=== PATIENT | female | born 2000 | race Hispanic/Latino ===

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

== ENCOUNTER 2025-07-30 23:12 | Emergency (ER) | payer MEDICAID, OTHER ==
[~2025-07-30] VITALS: Ht 162.6 cm; Wt 72.1 kg
[2025-07-30 23:44] LABS: APPEARANCE,URINE TURBID (CLEAR); GLUCOSE, URINE (UA) NEGATIVE (NEGATIVE); LEUKOCYTE ESTERASE ,URINE 250 Leu/uL (NEGATIVE); NITRATE,URINE NEGATIVE (NEGATIVE); OCCULT BLOOD,URINE LARGE (NEGATIVE)
[2025-07-30 23:45] LABS: HCG,QUALITATIVE URINE POSITIVE (NEGATIVE)
[2025-07-30 23:48] LABS: SQUAMOUS EPITHELIAL CELL,UR RARE /HPF (0-2)
[2025-07-31 00:43] LABS: IMMATURE GRANULOCYTE ABSOLUTE 0.03 K/uL (0-1); NUCLEATED RED BLOOD CELLS 0.0 % (0.0-0.19); PLATELET COUNT (AUTO) 300 K/uL (130-400); RED BLOOD CELL COUNT(AUTO) 4.19 MIL/uL (4.00-5.50); RED CELL DISTRIBUTION WIDTH 12.4 % (11.0-15.5); WHITE BLOOD COUNT (AUTO) 10.9 K/uL (4.8-10.8)
--- NOTE | 2025-07-31 00:50 | NUR ---
AT ULTRASOUND AT THIS TIME.
[2025-07-31 00:51] LABS: CREATININE 0.8 mg/dL (0.5-1.0); GLOMERULAR FILTR. RATE CALC 105.0 mL/min (>90); GLUCOSE,RANDOM 88.0 mg/dL (70-105); SODIUM SERUM 139.0 mmol/L (136-145); UREA NITROGEN, BLOOD 12.0 mg/dL (7-18)
[2025-07-31 01:18] LABS: HCG,QUANTITATIVE 4111.0 mIU/mL (0-5)
[2025-07-31] MEDS ORDERED: CEPH500B PO (01:38)
--- NOTE | 2025-07-31 01:39 | ERN ---
General Chief Complaint: Vaginal Bleeding Stated Complaint: C/O VAGINAL BLEEDING; 7 WKS Time Seen by MD: 23:22 History of Present Illness Initial Comments 24-year-old female came in for vaginal bleeding. Allergies: Coded Allergies: No Known Allergies (Unverified Allergy, Unknown, 07/30/25) Past Medical History Past Medical History: No Pertinent History Past Surgical History: None Female( History) LMP: Jun 09, 2025 : 1 Para: 0 Aborts: 0 ROS Dictation Vaginal bleed Physical Exam General Appearance: (+) no apparent distress, (+) apparent distress Respiratory: (+) chest non-tender, (+) lungs clear Heart: (+) regular, (+) no gallop Gastrointestinal: (+) soft, (+) no organomegaly, (+) bowel sound present Results Laboratory and Microbiology Lab and Micro Result Laboratory Tests Test 07/30/25 23:37 07/30/25 23:55 Urine Color YELLOW (YELLOW) Urine Appearance TURBID (CLEAR) Urine pH 7.0 (5.0-8.0) Urine Specific [place] 1.020 (1.001-1.031) Urine Protein NEGATIVE mg/dL (NEGATIVE) Urine Glucose (UA) NEGATIVE mg/dL (NEGATIVE) Urine Ketones 20 mg/dL (NEGATIVE) H Urine Occult Blood LARGE (NEGATIVE) H Urine Nitrate NEGATIVE (NEGATIVE) Urine Bilirubin NEGATIVE mg/dL (NEGATIVE) Urine Urobilinogen 0.2 mg/dL (0.2-1.0) Urine Leukocyte Esterase 250 Johnnie/uL (NEGATIVE) H Urine RBC 11-25 /HPF (0-1) H Urine WBC 26-50 /HPF (0-1) H Urine Squamous Epithelial Cells RARE /HPF (0-2) Urine Amorphous Crystals (Auto) RARE /LPF (None Seen) Urine Bacteria RARE /HPF (None Seen) Urine HCG, Qualitative POSITIVE (NEGATIVE) H White Blood Count 10.9 K/uL (4.8-10.8) H Red Blood Count 4.19 MIL/uL (4.00-5.50) Hemoglobin 13.3 g/dL (12.0-16.0) Hematocrit 38.9 % (36-48) Mean Corpuscular Volume 92.8 fL (79-99) Mean Corpuscular Hemoglobin 31.7 pg (27.0-33.0) Mean Corpuscular Hemoglobin Concent 34.2 g/dL (32.0-36.0) Red Cell Distribution Width 12.4 % (11.0-15.5) Platelet Count 300 K/uL (130-400) Mean Platelet Volume 9.3 fL (7.5-10.5) Immature Granulocyte % (Auto) 0.3 % (0-1) Neutrophils (%) (Auto) 60.9 % (40.0-77.0) Lymphocytes (%) (Auto) 28.1 % (21.0-51.0) Monocytes (%) (Auto) 8.2 % (3.0-13.0) Eosinophils (%) (Auto) 2.0 % (0.0-8.0) Basophils (%) (Auto) 0.5 % (0.0-5.0) Neutrophils # (Auto) 6.6 K/uL (1.8-7.7) Lymphocytes # (Auto) 3.1 K/uL (1.0-4.8) Monocytes # (Auto) 0.9 K/uL (0.1-1.0) Eosinophils # (Auto) 0.22 K/uL (0.00-0.70) Basophils # (Auto) 0.06 K/uL (0.00-0.20) Absolute Immature Granulocyte (auto 0.03 K/uL (0-1) Nucleated Red Blood Cells 0.0 % (0.0-0.19) Sodium Level 139 mmol/L (136-145) Potassium Level 3.6 mmol/L (3.5-5.1) Chloride Level 105 mmol/L (101-111) Carbon Dioxide Level 26 mmol/L (21-32) Blood Urea Nitrogen 12 mg/dL (7-18) Creatinine 0.8 mg/dL (0.5-1.0) Glomerular Filtration Rate Calc 105 mL/min (>90) Random Glucose 88 mg/dL (70-105) Total Calcium 9.6 mg/dL (8.5-10.1) Human Chorionic Gonadotropin, Quant 4111 mIU/mL (0-5) H MDM MDM: Differential diagnosis: Rationale: Tests considered and ordered secondary to shared decision making include: Previous outside records reviewed: Old ER visits. Risk of complication and/or morbidity or mortality of patient management: None Medications-Per medication reconciliation Need for hospitalization: Patient does not meet criteria for hospitalization. Need for emergency major/minor surgery: No There are no social concerns with this patient. Prescription drug management Prescriptions will include symptomatic care Patient's prior external medical records from other ER visits were reviewed by me as indicated. Prior testing and results from previous visits were reviewed. Prior tests were taken into account with medical decision making and resource utilization, independent historian/historians were used to obtain complete medical history. I independently interpreted the test that were performed, results were reviewed by me and considered findings on radiology if ordered. Medical management and examination interpretation discussions were had by me with other qualified healthcare professionals as indicated for the patient's care. ED Course Orders Procedure Category Date Status Time Cbc With Differential LAB 07/30/25 Complete 23:23 Basic Metabolic Panel LAB 07/30/25 Complete 23:23 Hcg,Quantitative LAB 07/30/25 Complete 23:23 ,Urine Test LAB 07/30/25 Complete 23:23 Urinalysis LAB 07/30/25 Complete W/Microscopic 23:23 Us Ob <14 Weeks US 07/30/25 Taken 23:23 Culture Urine STEPHANIE 07/30/25 In Process 23:46 Vital Signs Date Time Temp Pulse Resp B/P (MAP) Pulse Ox O2 Delivery O2 Flow Rate FiO2 07/30/25 23:16 98.2 77 20 124/79 100 Room Air DX & DISP Disposition: Discharge Departure Impression: Primary Impression: Threatened Condition: Stable Scripts Cephalexin Monohydrate (Keflex) 500 Mg Cap 500 MG PO BID for 7 Days, #14 CAP Prov: KERRI CASIANO MD 07/31/25 Referrals: SELF,REFERRAL (PCP) KERRI CASIANO MD Jul 31, 2025 01:39
[2025-07-31 02:00] VITALS: BP 134/75; PULSE 90; RESP 18; TEMP 98.2; O2SAT 99
--- NOTE | 2025-07-31 02:18 | HMCIMG ---
EXAM: US Obstetrical, Complete <14 weeks. CLINICAL HISTORY: Vaginal bleeding. TECHNIQUE: Transabdominal imaging of the maternal pelvis and a < 14-week gestation with image documentation. COMPARISON: None provided. FINDINGS: UTERUS: Measures 7.5 ??? 3 ??? 4.5 cm. Endometrial thickness 10 mm. No intrauterine gestational sac identified. GESTATIONAL SAC: Not visualized. YOLK SAC / EMBRYO: Not visualized. HEART RATE: Not detected. RIGHT OVARY: Measures 2.8 ??? 2.5 ??? 2.9 cm with normal flow. LEFT OVARY: Measures 4.2 ??? 2.4 ??? 3.0 cm with normal flow. CUL-DE-SAC: Trace free fluid noted. ADDITIONAL COMMENTS: No intrauterine seen at this time. Patient reports bleeding with clots since 07/30/25. Patient refused a transvaginal scan. Limited exam secondary to bowel gas. IMPRESSION: No intrauterine gestation identified on transabdominal scan. Trace free fluid in the pelvis. Correlation with quantitative ?-hCG and follow-up ultrasound recommended to exclude early intrauterine versus completed/ongoing miscarriage or ectopic . /Faith
== END 2025-07-31 02:01 | disposition home or self-care (01) ==
LOC: EDH 23:12
DX: O20.0 Threatened abortion (principal); Z3A.01 Less than 8 weeks gestation of pregnancy
CPT/HCPCS: 36415; 76801; 80048; 81001; 81025; 84702; 85025; 87086; 99284

== ENCOUNTER 2025-08-02 11:19 | Emergency (ER) | payer MEDICAID, OTHER ==
[~2025-08-02] VITALS: Ht 162.6 cm; Wt 71.7 kg
[~2025-08-02 11:19] MED LIST: CEPH500B PO
[2025-08-02 11:57] LABS: APPEARANCE,URINE CLEAR (CLEAR); GLUCOSE, URINE (UA) NEGATIVE (NEGATIVE); LEUKOCYTE ESTERASE ,URINE NEGATIVE Leu/uL (NEGATIVE); NITRATE,URINE NEGATIVE (NEGATIVE); OCCULT BLOOD,URINE LARGE (NEGATIVE)
[2025-08-02 11:58] LABS: ADD UA MICROSCOPIC YES
[2025-08-02 12:07] LABS: SQUAMOUS EPITHELIAL CELL,UR RARE /HPF (0-2)
[2025-08-02 12:31] LABS: IMMATURE GRANULOCYTE ABSOLUTE 0.02 K/uL (0-1); NUCLEATED RED BLOOD CELLS 0.0 % (0.0-0.19); PLATELET COUNT (AUTO) 314 K/uL (130-400); RED BLOOD CELL COUNT(AUTO) 4.25 MIL/uL (4.00-5.50); RED CELL DISTRIBUTION WIDTH 12.4 % (11.0-15.5); WHITE BLOOD COUNT (AUTO) 8.7 K/uL (4.8-10.8)
[2025-08-02 12:38] LABS: CREATININE 0.8 mg/dL (0.5-1.0); GLOMERULAR FILTR. RATE CALC 105.0 mL/min (>90); GLUCOSE,RANDOM 84.0 mg/dL (70-105); SODIUM SERUM 133.0 mmol/L (136-145); UREA NITROGEN, BLOOD 7.0 mg/dL (7-18)
[2025-08-02 12:50] LABS: HCG,QUANTITATIVE 276.0 mIU/mL (0-5)
[2025-08-02 13:30] VITALS: BP 129/82; PULSE 81; RESP 15; TEMP 98.2; O2SAT 99
--- NOTE | 2025-08-02 13:53 | ERN ---
General Chief Complaint: Vaginal Bleeding Stated Complaint: VAGINAL BLEEDING IN Time Seen by MD: 11:21 Time Seen by Midlevel: 11:21 Source: patient History of Present Illness Initial Comments Patient is a 24-year-old female presenting to the emergency department for suprapubic abdominal cramping and vaginal bleeding. She was seen in our emergency department three days ago for the same complaints. At that time she had a positive hCG test of 4111. An ultrasound was performed which did not see an intrauterine . She was discharged home with diagnosis of threatened . Allergies: Coded Allergies: No Known Allergies (Unverified Allergy, Unknown, 07/30/25) Home Meds Active Scripts Cephalexin Monohydrate (Keflex) 500 Mg Cap, 500 MG PO BID for 7 Days, #14 CAP Prov:KERRI CASIANO MD 07/31/25 Past Medical History Past Medical History: No Pertinent History Past Surgical History: None Female( History) : 1 Para: 0 Aborts: 0 ROS Dictation CONSTITUTIONAL: Negative except for HPI HEAD/FACE: Negative except for HPI EENT: Negative except for HPI RESPIRATORY: Negative except for HPI GASTROINTESTINAL/ABDOMINAL: Negative except for HPI GENITOURINARY: Negative except for HPI MUSCULOSKELETAL: Negative except for HPI INTEGUMENTARY: Negative except for HPI NEUROLOGICAL/PSYCH: Negative except for HPI HEMATOLOGIC/LYMPHATIC: Negative except for HPI All Systems Negative, Except as noted above. 13 point review of systems assessed and all negative except for above. Physical Exam Physical Exam Dictation Vital Signs reviewed General Appearance: Alert, oriented x 3, no acute distress, well developed, nourished. Head and Face: non-traumatic. Eyes: PERRL, pink conjunctivas, eyelid no trauma, anterior chamber with arcus senilis. Ears: Pinnas intact and no signs of trauma or erythema ear canals clear and no discharge TM no erythema Nose: No discharge, no bleeding. Oropharynx: Mouth normal, tongue pink, pharynx clear,no erythema, tonsils no exudates, no abscesses noted, mucous membrane moist Neck: Supple, non-tender, no thyromegaly, no masses, no JVD, no bruits Breast:Deferred Chest:No tenderness, no crepitus, no paradoxical movement, no retractions Lungs:Clear, well-ventilated, symmetric, no rales, no wheezing, no rhonchi, no stridor, good breath sounds bilaterally Heart: Regular rate, regular rhythm, no murmur, no gallops Vascular: no peripheral edema, Abdomen: Soft, positive bowel sounds, nondistended, no guarding, nontender, no rebound, no masses no hepatomegaly, no splenomegaly, no Hill's sign, no hernias. Rectal: Deferred Genital: Deferred Neurological: Normal speech, motor function intact, sensory function intact Musculoskeletal: Neck nontender, full range of motion, back nontender, full range of motion, Extremities: nontender, full range of motion Skin: Color pink, dry, no turgor, no rash, no lacerations, no abrasions, no contusions. Lymphatic: Deferred Results Laboratory and Microbiology Lab and Micro Result Laboratory Tests Test 08/02/25 11:23 08/02/25 12:08 Urine Color COLORLESS (YELLOW) Urine Appearance CLEAR (CLEAR) Urine pH 6.0 (5.0-8.0) Urine Specific [place] 1.002 (1.001-1.031) Urine Protein NEGATIVE mg/dL (NEGATIVE) Urine Glucose (UA) NEGATIVE mg/dL (NEGATIVE) Urine Ketones 5 mg/dL (NEGATIVE) H Urine Occult Blood LARGE (NEGATIVE) H Urine Nitrate NEGATIVE (NEGATIVE) Urine Bilirubin NEGATIVE mg/dL (NEGATIVE) Urine Urobilinogen 0.2 mg/dL (0.2-1.0) Urine Leukocyte Esterase NEGATIVE Johnnie/uL Urine RBC 0-1 /HPF (0-1) Urine WBC 2-5 /HPF (0-1) H Urine Squamous Epithelial Cells RARE /HPF (0-2) Urine Bacteria Rare /HPF (None Seen) White Blood Count 8.7 K/uL (4.8-10.8) Red Blood Count 4.25 MIL/uL (4.00-5.50) Hemoglobin 13.2 g/dL (12.0-16.0) Hematocrit 39.3 % (36-48) Mean Corpuscular Volume 92.5 fL (79-99) Mean Corpuscular Hemoglobin 31.1 pg (27.0-33.0) Mean Corpuscular Hemoglobin Concent 33.6 g/dL (32.0-36.0) Red Cell Distribution Width 12.4 % (11.0-15.5) Platelet Count 314 K/uL (130-400) Mean Platelet Volume 9.1 fL (7.5-10.5) Immature Granulocyte % (Auto) 0.2 % (0-1) Neutrophils (%) (Auto) 52.3 % (40.0-77.0) Lymphocytes (%) (Auto) 38.2 % (21.0-51.0) Monocytes (%) (Auto) 7.5 % (3.0-13.0) Eosinophils (%) (Auto) 1.5 % (0.0-8.0) Basophils (%) (Auto) 0.3 % (0.0-5.0) Neutrophils # (Auto) 4.5 K/uL (1.8-7.7) Lymphocytes # (Auto) 3.3 K/uL (1.0-4.8) Monocytes # (Auto) 0.7 K/uL (0.1-1.0) Eosinophils # (Auto) 0.13 K/uL (0.00-0.70) Basophils # (Auto) 0.03 K/uL (0.00-0.20) Absolute Immature Granulocyte (auto 0.02 K/uL (0-1) Nucleated Red Blood Cells 0.0 % (0.0-0.19) Sodium Level 133 mmol/L (136-145) L Potassium Level 3.4 mmol/L (3.5-5.1) L Chloride Level 97 mmol/L (101-111) L Carbon Dioxide Level 26 mmol/L (21-32) Blood Urea Nitrogen 7 mg/dL (7-18) Creatinine 0.8 mg/dL (0.5-1.0) Glomerular Filtration Rate Calc 105 mL/min (>90) Random Glucose 84 mg/dL (70-105) Total Calcium 9.3 mg/dL (8.5-10.1) Human Chorionic Gonadotropin, Quant 276 mIU/mL (0-5) H Labs Reviewed?: Yes MDM MDM: Patient is a 24-year-old female presenting to the emergency department for suprapubic abdominal cramping and vaginal bleeding. She was seen in our emergency department three days ago for the same complaints. At that time she had a positive hCG test of 4111. An ultrasound was performed which did not see an intrauterine . She was discharged home with diagnosis of threatened . On physical examination patient has no abdominal tenderness, rebound, or guarding. We repeated hCG quant an ultrasound. HCG is trending downwards and is now in the 200 range. Her ultrasound does not reveal an intrauterine at this time. It appears the patient has a miscarriage. I did discussed lab and imaging findings with the patient and all of her questions were answered. I informed the patient that the hCG level has to be trended all the way to 0. She will need a repeat hCG and a repeat ultrasound in one week. I advised her to follow up with her OBGYN but if she is unable to get an appointment she was advised to report to the ER for further evaluation. Differential diagnosis: Care, ectopic , There are no social concerns with this patient. Prescription drug management Prescriptions will include:none Medical management and examination interpretation discussions were had by me with other qualified healthcare professionals as indicated for the patient's care. ED Course Orders Procedure Category Date Status Time Cbc With Differential LAB 08/02/25 Complete 11:23 Basic Metabolic Panel LAB 08/02/25 Complete 11:23 Urinalysis Profile LAB 08/02/25 Complete 11:23 Hcg,Quantitative LAB 08/02/25 Complete 11:23 Us Ob <14 Weeks US 08/02/25 Taken 11:24 Vital Signs Date Time Temp Pulse Resp B/P (MAP) Pulse Ox O2 Delivery O2 Flow Rate FiO2 08/02/25 11:20 98.2 81 20 129/82 99 Room Air DX & DISP Disposition: Discharge Departure Impression: Primary Impression: Miscarriage Condition: Stable Referrals: SELF,REFERRAL (PCP) Time of Disposition: 13:50 I have reviewed the case, and I agree with, Diagnosis and Plan I performed the substantive portion of the visit. I have reviewed and personally made and approve the management plan that is documented in the note by myself or the ADRI. I acknowledge for responsibility for the patient's management plan. CHAD SULTANA PAC Aug 02, 2025 13:53
--- NOTE | 2025-08-02 14:49 | HMCIMG ---
EXAM: US Obstetrical, Complete >14 weeks. CLINICAL HISTORY: possible miscarriage, beta hCG of 276 TECHNIQUE: Transabdominal imaging of the maternal pelvis and a > 14 week gestation with image documentation. COMPARISON: Ultrasound examination dated July 30, 2025 FINDINGS: The uterus measures 8.0 x 4.9 x 5.1 cm in craniocaudal, AP, and transverse dimensions respectively. The endometrial stripe measures up to 0.9 cm. The cervix is closed and normal in length. The right ovary is obscured by overlying bowel gas. The left ovary measures 1.8 x 1.8 x 2.2 cm. Appropriate ovarian blood flow is documented. Trace free fluid within the cul-de-sac. IMPRESSION: Above described findings may be seen in the setting of an ectopic that is not visualized, and normal early , or a complete miscarriage. Recommend serial quantitative beta hCG and follow-up ultrasound imaging. /Morning Sun
== END 2025-08-02 14:07 | disposition home or self-care (01) ==
LOC: EDH 11:19
DX: O03.9 Complete or unspecified spontaneous abortion without complication (principal)
CPT/HCPCS: 36415; 76801; 80048; 81001; 84702; 85025; 99284